=== PATIENT | female | born 1980 | race Caucasian/White ===

== ENCOUNTER 2024-01-02 21:01 | Emergency (ER) | payer BC, SELFPAY ==
[2024-01-02 21:03] VITALS: BP 140/92
[2024-01-02 22:08] LABS: % Basophils 0.4 % (0-2); % Eosinophils 1.9 % (0-6); % Immature Granulocytes 0.2 % (0-0.5); % Lymphocytes 36.4 % (20.5-51.1); % Monocytes 7.6 % (1.7-9.3); % Neutrophils 53.5 % (42.2-75.2); Absolute Eosinophils 0.1 10^3/uL (0-0.7); Absolute Lymphocytes 1.9 10^3/uL (1.2-3.4); Absolute Monocytes 0.4 10^3/uL (0.1-0.6); Absolute Neutrophils 2.8 10^3/uL (1.4-6.5); Hemoglobin 10.2 g/dL (12.0-16.0); Mean Corp Hgb Conc. 31.9 g/dL (33.0-37.0); Mean Corpuscular Hgb 23.1 pg (27.0-31.0); Mean Corpuscular Volume 72.6 fL (81.0-99.0); Mean Platelet Volume 10.9 fL (7.4-10.4); Nucleated Red Blood Cells % 0 %; Platelet Count 247 10^3/uL (130-400); Red Blood Cell Count 4.41 10^6/uL (4.20-5.40); Red Cell Dist. Width 16.6 % (11.5-14.5); White Blood Cell Count 5.3 10^3/uL (4.8-10.8)
[2024-01-02 22:27] LABS: Erythrocyte Sed Rate 3 mm/hour (0-20)
[2024-01-02 22:35] LABS: Blood Urea Nitrogen 16 mg/dl (7-17); Calcium 8.9 mg/dl (8.4-10.2); Carbon Dioxide 23 mmol/L (22-30); Chloride 105 mmol/L (98-107); Glucose 95 mg/dl (70-99); Potassium 4.1 mmol/L (3.5-5.1); Sodium 136 mmol/L (135-145); eGFR > 60.00
[2024-01-02 22:36] LABS: HCG, Serum Qualitative Screen Negative
[2024-01-02 22:37] LABS: Troponin I < 0.012 ng/ml
[2024-01-02 22:39] LABS: C-Reactive Protein < 5.00 mg/L (0.0-10.00)
--- NOTE | 2024-01-02 22:44 | ED.GENMED ---
History of Present Illness
General
Chief Complaint: Headache
Source: patient and spouse
Time Seen by Provider: 01/02/24 21:49
Travel History
Have you had any contact with someone who has COVID-19?: No
Do you have any symptoms of coronavirus? Fever > 100 degrees, chills, cough, shortness of breath, sore throat, loss of taste or smell, muscle aches, or headache?: No
History of Present Illness
History of Present Illness:
43-year-old female with past medical history of previous stomach ulcer presenting to the emergency department for evaluation after around 630 she started develop a right-sided frontotemporal headache described to be a constant aching sensation,
pressure-like and accompanied with blurred vision and as if she were seeing spots, nausea but no vomiting, plus mild chest discomfort but this is since resolved. Patient also notes earlier this morning around 10 AM she had a transient episode of
numbness/heaviness to her right arm which lasted around 5 minutes and then resolved but there were no other symptoms associated with this at the time. Patient denies any history of similar. Notes that she had migraines many years ago but has not
had any headaches like this since. She did take some Tylenol and Advil prior to coming to the emergency department but this was without any relief.
Past History
Past History
ED Past Medical History: Asthma, GERD (Gastric ulcers), Other (Irritable bowel syndrome, ovarian cysts) and Other (Perforated stomach ulcer)
ED Past Surgical History: Gynecological (Cervical conization 2003) and Other (Gastric ulcer perforation repair 2005)
Social History
Tobacco: Non-smoker
Alcohol: None
Drug: None
Personal:
Living: with family
Employment: Employed
Family History
Family History: Other (Noncontributory)
Review of Systems
Review of Systems
All Other Systems: ROS reviewed and negative except as documented in HPI and ROS
Phy Exam
Physical Exam
Physical Exam:
GENERAL: Alert , in no apparent distress
EYE: pupils equal and reactive, 3 mm bilateral, photophobic
NECK: Supple, no meningismus
ENT: o/p clr, mmm.
CARDIAC: Regular rate and rhythm, no murmur.
LUNGS: Clear breath sounds bilaterally, no acute respiratory distress, no wheezes/rales/rhonchi
ABDOMEN: Soft, without focal tenderness, no r/g, no cvat
SKIN: Warm and dry, skin intact.
MUSCULOSKELETAL: No edema, well perfused.
PSYCH: Normal and appropriate interaction.
NEURO: Moves all extremities, sensation grossly intact to light touch upper and lower extremity bilateral, finger-nose intact, [id number] intact, ambulates with steady gait, no dysmetria or dysarthria, no aphasia
Scores
Heart Failure Risk
Heart Failure Risk Score: Not Applicable
Heart Score for Chest Pain Patients
STEMI patient?: Not applicable
Withdrawal Assessment of Alcohol
Withdrawal Assessment Completed?: Not applicable
Course
Orders/Labs/Results
Orders:
Orders
01/02/24 21:59
Electrocardiogram (*1) Urgent
Reason for Study: Chest Pain
EKG- Treatment ONCE
Test Result ONCE
01/02/24 22:00
CRP [C-Reactive Protein] Urgent
ESR [Erythrocyte Sed Rate] Urgent
01/02/24 22:02
Basic Metabolic Panel Urgent
Complete Blood Count/With Diff Urgent
HCG, Serum Qualitative Screen Urgent
Troponin I Urgent
01/02/24 22:16
Add On- LAB Urgent
Tests Added?: CRP & ESR
01/02/24 22:32
CT Head & Neck Angio W/wo IV Urgent
Comment:
Reason For Exam: right sided headache, right arm numb earlier
01/02/24 23:08
0.9% Sodium Chloride 1000 ml [Nss] 1,000 ml IV BOLUS
Dexamethasone Sod Phosphate [Decadron] 10 mg IV NOW STA
Diphenhydramine [Benadryl] 25 mg IV NOW STA
Metoclopramide [Reglan] 10 mg IV NOW STA
Abnormal Lab Results
01/02/24
22:02
Hgb 10.2 L g/dL
(12.0-16.0)
Hct 32.0 L %
(37.0-47.0)
MCV 72.6 L fL
(81.0-99.0)
MCH 23.1 L pg
(27.0-31.0)
MCHC 31.9 L g/dL
(33.0-37.0)
RDW 16.6 H %
(11.5-14.5)
MPV 10.9 H fL
(7.4-10.4)
01/02/24 22:02
01/02/24 22:02
Vital Signs
Initial and Last Documented VS:
Initial Vital Signs
Temp Pulse Resp BP Pulse Ox
97.8 F 91 20 140/92 100
01/02/24 21:03 01/02/24 21:03 01/02/24 21:03 01/02/24 21:03 01/02/24 21:03
Last Documented Vital Signs
Temp Pulse Resp BP Pulse Ox
97.8 F 70 20 108/77 99
01/03/24 01:07 01/03/24 01:07 01/03/24 01:07 01/03/24 01:07 01/03/24 01:07
Hotel Maid consulted with Physician
Hotel Maid consulted with physician?: Yes
Name of Physician Consulted: Edna
MDM/Problems Addressed
Differential Diagnosis Includes:
Tension headache, migraine headache, cluster headache, less concern for giant cell arteritis given patient's age
Carotid dissection, aneurysm
MDM/Problems Addressed:
43-year-old female presenting to the emergency department for evaluation of a right-sided headache that began around 630, unrelieved with Tylenol and Advil. No acute neurologic findings on exam. Unclear if patient's transient episode of
numbness/heaviness to her right upper extremity earlier today is related. CT of the head as well as CTA of the head and neck were ordered. Migraine cocktail of Reglan, Benadryl, Decadron and fluids ordered. Reassessment following
*Radiology
Radiology exam reviewed: radiology read reviewed
*Pulse Oximetry
Patient hypoxic: no
*Critical Care Note
Total Time (30-74mins, 75-104mins- exclusive of procedures): Not Applicable
Patient Management
Escalation/DeEscalation of care consider admission/obs:
Patient CT scan without any emergent pathologies. Following medications she is resting comfortably and in no acute distress. Patient requesting to be discharged home. Possible migraine with aura presentation. Advise close follow-up with primary
care physician. Aware of return precautions to the ER
ED Attending Note
-
Portions of this chart may have been created with voice recognition software.� Occasional wrong word or��sound alike� substitutions may have occurred due to the inherent limitations of voice recognition software.
Discharge Plan
Departure
Patient Disposition: Home (Routine Discharge)
Date of Disposition: 01/03/24
Time of Disposition: 00:35
Patient with high blood pressure during this ER visit?: Yes
Discharge Problem:
Headache, migraine
Instructions: Migraines (DC)
Prescriptions:
No Action
dextroamphetamine-amphetamine [Adderall] 20 MG tablet
20 mg PO DAILY
esomeprazole magnesium [Nexium] 40 MG capsule,delayed release(DR/EC)
40 mg PO DAILY Qty: 0 0RF
Referrals:
Chidi Sood MD [Family Provider] -
Interventions
Interventions:
*Risk Screen - Suicide Last Done: 01/02/24 21:03
*General Assessment Last Done: 01/02/24 21:03
*Neglect/Abuse Screening Last Done: 01/02/24 21:03
ED- Fall Risk Assessment Last Done: 01/02/24 21:03
*ED COVID-19 Vaccine History Last Done: 01/02/24 21:03
*Nursing Disposition Last Done: 01/03/24 01:07
ED- Neurological Assessment Last Done: 01/02/24 23:00
Discharge Date and Time
Discharge Date/Time: 01/03/24 01:10
[2024-01-02] MEDS: NSS 1000 IV (23:12)
[2024-01-02] MEDS: BENADRYL 25 MG IV (23:13)
[2024-01-02] MEDS: REGLAN 10 MG IV (23:14)
[2024-01-02] MEDS: DECADRON 10 MG IV (23:15)
[2024-01-03 01:07] VITALS: BP 108/77
== END 2024-01-03 01:10 | disposition home or self-care (01) ==
LOC: EMR 21:01
PROVIDERS: Physician Assistant Medical; EMERGENCY PHYSICIAN Emergency Medicine; FAMILY PHYSICIAN Family Medicine
DX: R51.9 Headache, unspecified (principal); J45.909 Unspecified asthma, uncomplicated; K21.9 Gastro-esophageal reflux disease without esophagitis; K58.8 Other irritable bowel syndrome; K25.9 Gastric ulcer, unspecified as acute or chronic, without hemorrhage or perforation; Z04.9 Encounter for examination and observation for unspecified reason
CPT/HCPCS: 99284; 96374; 96375; 96361; 70496; 70498; 80048; 84484; 84703; 85025; 85652; 86140; 93005; Q9967

== ENCOUNTER → 2024-07-23 08:49 | Outpatient (REF) | payer BC, SELFPAY | LOC: HWRAD 08:49 | PROVIDERS: ATTENDING PHYSICIAN Obstetrics & Gynecology; FAMILY PHYSICIAN Family Medicine | DX: N93.9 Abnormal uterine and vaginal bleeding, unspecified (principal) | CPT/HCPCS: 76830; 76856 ==

== ENCOUNTER → 2024-09-24 14:13 | Outpatient (REF) | payer BC, SELFPAY | LOC: WDC 14:13 | PROVIDERS: ATTENDING PHYSICIAN Obstetrics & Gynecology | DX: Z12.31 Encounter for screening mammogram for malignant neoplasm of breast (principal) | CPT/HCPCS: 77063; 77067 ==

== ENCOUNTER → 2024-11-17 06:29 | Day surgery (SDC) | payer BC, SELFPAY ==
[2024-11-13 08:59] LABS: % Basophils 0.6 % (0-2); % Eosinophils 1.6 % (0-6); % Lymphocytes 33.7 % (20.5-51.1); % Monocytes 8.6 % (1.7-9.3); % Neutrophils 55.5 % (42.2-75.2); Absolute Eosinophils 0.1 10^3/uL (0-0.7); Absolute Lymphocytes 1.1 10^3/uL (1.2-3.4); Absolute Monocytes 0.3 10^3/uL (0.1-0.6); Absolute Neutrophils 1.8 10^3/uL (1.4-6.5); Hematocrit 37.8 % (37.0-47.0); Hemoglobin 12.9 g/dL (12.0-16.0); Mean Corp Hgb Conc. 34.1 g/dL (33.0-37.0); Mean Corpuscular Hgb 30.1 pg (27.0-31.0); Mean Corpuscular Volume 88.3 fL (81.0-99.0); Mean Platelet Volume 11.2 fL (7.4-10.4); Nucleated Red Blood Cells % 0 %; Platelet Count 201 10^3/uL (130-400); Red Blood Cell Count 4.28 10^6/uL (4.20-5.40); Red Cell Dist. Width 12.6 % (11.5-14.5); White Blood Cell Count 3.2 10^3/uL (4.8-10.8)
[2024-11-13 09:11] LABS: INR 0.94; PT 12.9 Sec (11.4-14.6)
[2024-11-13 09:39] LABS: Blood Urea Nitrogen 13 mg/dl (7-17); Calcium 8.8 mg/dl (8.4-10.2); Carbon Dioxide 28 mmol/L (22-30); Chloride 103 mmol/L (98-107); Glucose 90 mg/dl (70-99); Potassium 4.7 mmol/L (3.5-5.1); Sodium 138 mmol/L (135-145); eGFR > 60.00
[2024-11-13 09:56] LABS: Beta HCG Quantitative < 2.39 mIU/ml
[2024-11-13 13:47] VITALS: BMI 28.7
[2024-11-17] VITALS (16 sets, daily range): BP systolic 93–117; BP diastolic 58–82; BMI 28.7
[2024-11-17] MEDS: TYLENOL 1000 MG PO (09:10)
[2024-11-17] MEDS: NEURONTIN 300 MG PO (09:11)
[2024-11-17] MEDS: NORMOSOL-R/PLASMALYTE-A 1000 IV (09:15)
--- NOTE | 2024-11-17 11:59 | W.IMMPOSTOP ---
Surgical Immed Post Op Note
-
Primary Surgeon: Reinier
Assisting Surgeon: RON Baig
Pre-op Diagnosis: Menorrhagia, severe dysmenorrhea, dyspareunia
Post-op Diagnosis: Menorrhagia, severe dysmenorrhea, dyspareunia
Procedure Performed: Diagnostic laparoscopy
Anesthesia Type: General
Specimen / Cultures: None
Estimated Blood Loss: 3 cc
Complications: None
Operative Findings:
1. Abdominal access and insufflation with Veress needle within the LUQ at Patel's point, single pass, negative aspiration and positive hanging drop test
2. 5 mm Optiview trocar inserted in the LLQ, no evidence of iatrogenic injury upon insertion of the trocar or Veress needle
3. Four 8 mm robotic ports inserted just above the level of the umbilicus and off midline under direct visualization
--- NOTE | 2024-11-17 12:42 | W.IMMPOSTOP ---
Surgical Immed Post Op Note
-
Primary Surgeon: Corina Ozuna DO
Insulation Sprayer surgeon: Dr. Brando Hills- for port entry due to prior hx upper midline incision and multiple hernias.
Desk Interviewer: RON Carlos
Pre-op Diagnosis: Menorrhagia, dysmenorrhea
Post-op Diagnosis: same
Procedure Performed: Robotic assisted TLH right salpingectomy, right ovarian cystectomies, pelvic washings.
Anesthesia Type: general ET Dr. Rodriguez
Specimen / Cultures: 1. Pelvic Washings 2. uterus, cervix right fallopian tube 3. right ovarian cyst katz (submitted as one specimen), 4. right ovarian corpus luteal cyst wall
Estimated Blood Loss: 15ml
Urine output: 300ml clear yellow
Complications: none
Operative Findings: Enlarged globular shaped uterus with right fallopian tube with multiple clear cysts (suspect salpingiosis) but otherwise normal in appearance. Right ovary with multiple small 1cm simple cysts and a corpus luteal cyst 1.5cm.
Counts correct times 2.
[2024-11-17] MEDS: DEMEROL 12.5 MG IV ×2 (13:26→13:43)
[2024-11-17] MEDS: ZOFRAN 4 MG IV (15:23)
[2024-11-17] MEDS: ROXICODONE 5 MG PO (16:15)
== END | disposition home or self-care (01) ==
LOC: SDS 06:29
PROVIDERS: ATTENDING PHYSICIAN Obstetrics & Gynecology; FAMILY PHYSICIAN Family Medicine
DX: N80.03 Adenomyosis of the uterus (principal); N83.11 Corpus luteum cyst of right ovary; N92.0 Excessive and frequent menstruation with regular cycle; N83.201 Unspecified ovarian cyst, right side; N83.8 Other noninflammatory disorders of ovary, fallopian tube and broad ligament; N94.6 Dysmenorrhea, unspecified; N94.10 Unspecified dyspareunia; R10.2 Pelvic and perineal pain
CPT/HCPCS: 58571; 58662; 88305; 88307; 36415; 80048; 84702; 85025; 85610; 86850; 86900; 86901; 88112